=== PATIENT | male | born 1985 | race Caucasian/White ===

== ENCOUNTER 2019-10-08 18:04 | Observation (INO) | payer OTHER ==
[2019-10-08] MEDS ORDERED: SODIUM CHLORIDE 0.9% 1,000 ML IV STA (18:28)
--- NOTE | 2019-10-08 18:37 | ED ---
General Adult HPI - General Source: patient, RN notes reviewed, old records reviewed Mode of arrival: ambulatory Limitations: no limitations <Jl Mcgrath - Last Filed: 10/08/19 19:59> <Carlos Berrios - Last Filed: 10/08/19 20:23> - General Chief complaint: Urogenital Stated complaint: Urogenital Time Seen by Provider: 10/08/19 18:18 - History of Present Illness Initial comments: 34-year-old male patient presents to ED for evaluation approximate 4 days right flank pain, fevers chills, approximately 3 episodes of nausea and vomiting. Patient was seen yesterday at [facility] where imaging revealed a 5 mm right-sided distal ureteral stone, pyuria nitrate positive. Patient also had a leukocytosis of 20. At that time patient was administered 2 g of Rocephin recommended transfer to [facility]. Patient signed out AGAINST MEDICAL ADVICE from the facility today. Patient presents today for evaluation. Patient has not taken any antibiotics today was discharged with ciprofloxacin was not able to get filled. Patient continues to have pain in the right lower flank region. Does report some subjective fevers and chills. Patient also had incidental finding of undescended testicle. Denies any other complaints at this time. Systemic: Pt denies fatigue, fever/chills, rash. Pt denies weakness, night sweats, weight loss. Neuro: Pt denies headache, visual disturbances, syncope or pre-syncope. HEENT: Pt denies ocular discharge or irritation, otalgia, rhinorrhea, pharyn gitis or notable lymphadenopathy. Cardiopulmonary: Pt denies chest pain, SOB, heart palpitations, dyspnea on exertion. Abdominal/GI: Pt denies abdominal pain, n/v/d. : Pt denies dysuria, burning w/ urination, frequency/urgency. Denies new onset urinary or bowel incontinence. MSK: Pt denies myalgia, loss of strength or function in extremities. Neuro: Pt denies new onset weakness, paresthesias. (Jl Mcgrath) - Related Data Allergies Allergy/AdvReac Type Severity Reaction Status Date / Time No Known Allergies Allergy Verified 10/08/19 18:09 Review of Systems ROS Other: All systems not noted in ROS Statement are negative. <Jl Mcgrath - Last Filed: 10/08/19 19:59> ROS Other: All systems not noted in ROS Statement are negative. <Carlos Berrios - Last Filed: 10/08/19 20:23> ROS Statement: Those systems with pertinent positive or pertinent negative responses have been documented in the HPI. Past Medical History Past Medical History: No Reported History Past Surgical History: No Surgical Hx Reported Past Psychological History: No Psychological Hx Reported Smoking Status: Current every day smoker Past Alcohol Use History: Occasional Past Drug Use History: Marijuana <Jl Mcgrath - Last Filed: 10/08/19 19:59> General Exam Limitations: no limitations <Jl Mcgrath - Last Filed: 10/08/19 19:59> - General Exam Comments Initial Comments: Constitutional: NAD, AOX3, Pt has pleasant affect. HEENT: NC/AT, trachea midline, neck supple, no lymphadenopathy. Posterior pharynx non erythematous, without exudates. External ears appear normal, without discharge. Mucous membranes moist. Eyes PERRLA, EOM intact. There is no scleral icterus. No pallor noted. Cardiopulmonary: RRR, no murmurs, rubs or gallops, no JVD noted. Lungs CTAB in anterior and posterior guadalupe. No peripheral edema. Abdominal exam: Abdomen soft and non-distended. Abdomen non-tender to palpation in all 4 quadrants. Bowel sounds active in LLQ. No hepatosplenomegaly. No ecchymosis. Right CVA tenderness positive, left CVA tenderness negative. Neuro: CN II-XII grossly intact. No nuchal rigidity. No raccon eyes, no bajwa sign, no hemotympanum. No cervical spinal tenderness. MSK: No posterior calf tenderness bilaterally, homans sign negative bilaterally. Posterior tibialis and radial pulse +2 bilaterally. Sensation intact in upper and lower extremities. Full active ROM in upper and lower extremities, 5/5 stregnth. (Jl Mcgrath) Course <Carlos Berrios - Last Filed: 10/08/19 20:23> Vital Signs 10/08/19 18:09 Temperature 98.1 F Pulse Rate 94 Respiratory 18 Rate Blood Pressure 122/75 O2 Sat by Pulse 97 Oximetry - Reevaluation(s) Reevaluation #1: 10/08/19 20:22 (Carlos Berrios) Medical Decision Making - Lab Data Result diagrams: 10/08/19 18:36 10/08/19 18:36 <Jl Mcgrath - Last Filed: 10/08/19 19:59> - Lab Data Result diagrams: 10/08/19 18:36 10/08/19 18:36 <Carlos Berrios - Last Filed: 10/08/19 20:23> - Medical Decision Making 34-year-old male patient presents to ED for evaluation approximate 4 days right flank pain, fevers chills, approximately 3 episodes of nausea and vomiting. Patient was seen yesterday at [facility] where imaging revealed a 5 mm right-sided distal ureteral stone, pyuria nitrate positive. Patient also had a leukocytosis of 20. At that time patient was administered 2 g of Rocephin recommended transfer to [facility]. Patient signed out AGAINST MEDICAL ADVICE from the facility today. Patient presents today for evaluation. Patient has not taken any antibiotics today was discharged with ciprofloxacin was not able to get filled. Patient continues to have pain in the right lower flank region. Does report some subjective fevers and chills. Patient also had incidental finding of undescended testicle. Denies any other complaints at this time. Patient vital signs stable, afebrile. Physical exam displayed right CVA tenderness. Laboratory investigations revealed leukocytosis of 20, creatinine of 1.2. UA displayed >182 wbc. KUB displayed no acute process. CAT scan report from history displayed a 5 mm distal ureteral stone. Case discussed the patient seen by Dr. Berrios. Patient will be admitted to Dr. Frausto for septic stone. (Jl Mcgrath) Case discussed with Dr. Padgett, regarding kidney stone with obstruction and UTI. He is given IV antibiotics in the emergency department. Urologist recommends admission for stent placement. Patient will be kept nothing by mouth tonight. For possible stent placement in the morning. Patient has said that he may not stay, he is told that he will be leaving AGAINST MEDICAL ADVICE, he is informed of the risks of this including worsening infection, kidney failure, sepsis. Patient has been admitted at this time. (Carlos Berrios) - Lab Data Lab Results 10/08/19 10/08/19 10/08/19 Range/Units 18:36 18:36 18:36 WBC 20.1 H (3.8-10.6) k/uL RBC 4.09 L (4.30-5.90) m/uL Hgb 12.5 L (13.0-17.5) gm/dL Hct 36.7 L (39.0-53.0) % MCV 89.8 (80.0-100.0) fL MCH 30.6 (25.0-35.0) pg MCHC 34.0 (31.0-37.0) g/dL RDW 13.2 (11.5-15.5) % Plt Count 198 (150-450) k/uL Neutrophils % 86 % Lymphocytes % 4 % Monocytes % 7 % Eosinophils % 1 % Basophils % 0 % Neutrophils # 17.2 H (1.3-7.7) k/uL Lymphocytes # 0.7 L (1.0-4.8) k/uL Monocytes # 1.5 H (0-1.0) k/uL Eosinophils # 0.2 (0-0.7) k/uL Basophils # 0.0 (0-0.2) k/uL PT (9.0-12.0) sec INR (<1.2) APTT (22.0-30.0) sec Sodium 137 (137-145) mmol/L Potassium 4.2 (3.5-5.1) mmol/L Chloride 106 (98-107) mmol/L Carbon Dioxide 24 (22-30) mmol/L Anion Gap 7 mmol/L BUN 14 (9-20) mg/dL Creatinine 1.24 (0.66-1.25) mg/dL Est GFR (CKD-EPI)AfAm 87 (>60 ml/min/1.73 sqM) Est GFR (CKD-EPI)NonAf 75 (>60 ml/min/1.73 sqM) Glucose 128 H (74-99) mg/dL Plasma Lactic Acid Roni 0.9 (0.7-2.0) mmol/L Calcium 8.9 (8.4-10.2) mg/dL Total Bilirubin 1.1 (0.2-1.3) mg/dL AST 26 (17-59) U/L ALT 22 (4-49) U/L Alkaline Phosphatase 122 (38-126) U/L Total Protein 6.2 L (6.3-8.2) g/dL Albumin 3.3 L (3.5-5.0) g/dL Lipase 30 (23-300) U/L Urine Color Urine Appearance (Clear) Urine pH (5.0-8.0) Ur Specific [place] (1.001-1.035) Urine Protein (Negative) Urine Glucose (UA) (Negative) Urine Ketones (Negative) Urine Blood (Negative) Urine Nitrite (Negative) Urine Bilirubin (Negative) Urine Urobilinogen (<2.0) mg/dL Ur Leukocyte Esterase (Negative) Urine RBC (0-5) /hpf Urine WBC (0-5) /hpf Urine WBC Clumps (None) /hpf Ur Squamous Epith Cells (0-4) /hpf Urine Bacteria (None) /hpf Urine Mucus (None) /hpf 10/08/19 10/08/19 Range/Units 18:36 18:36 WBC (3.8-10.6) k/uL RBC (4.30-5.90) m/uL Hgb (13.0-17.5) gm/dL Hct (39.0-53.0) % MCV (80.0-100.0) fL MCH (25.0-35.0) pg MCHC (31.0-37.0) g/dL RDW (11.5-15.5) % Plt Count (150-450) k/uL Neutrophils % % Lymphocytes % % Monocytes % % Eosinophils % % Basophils % % Neutrophils # (1.3-7.7) k/uL Lymphocytes # (1.0-4.8) k/uL Monocytes # (0-1.0) k/uL Eosinophils # (0-0.7) k/uL Basophils # (0-0.2) k/uL PT 10.6 (9.0-12.0) sec INR 1.0 (<1.2) APTT 29.5 (22.0-30.0) sec Sodium (137-145) mmol/L Potassium (3.5-5.1) mmol/L Chloride (98-107) mmol/L Carbon Dioxide (22-30) mmol/L Anion Gap mmol/L BUN (9-20) mg/dL Creatinine (0.66-1.25) mg/dL Est GFR (CKD-EPI)AfAm (>60 ml/min/1.73 sqM) Est GFR (CKD-EPI)NonAf (>60 ml/min/1.73 sqM) Glucose (74-99) mg/dL Plasma Lactic Acid Roni (0.7-2.0) mmol/L Calcium (8.4-10.2) mg/dL Total Bilirubin (0.2-1.3) mg/dL AST (17-59) U/L ALT (4-49) U/L Alkaline Phosphatase (38-126) U/L Total Protein (6.3-8.2) g/dL Albumin (3.5-5.0) g/dL Lipase (23-300) U/L Urine Color Yellow Urine Appearance Cloudy (Clear) Urine pH 6.5 (5.0-8.0) Ur Specific [place] 1.010 (1.001-1.035) Urine Protein 1+ H (Negative) Urine Glucose (UA) Negative (Negative) Urine Ketones Negative (Negative) Urine Blood Small H (Negative) Urine Nitrite Negative (Negative) Urine Bilirubin Negative (Negative) Urine Urobilinogen 2.0 (<2.0) mg/dL Ur Leukocyte Esterase Large H (Negative) Urine RBC 7 H (0-5) /hpf Urine WBC >182 H (0-5) /hpf Urine WBC Clumps Many H (None) /hpf Ur Squamous Epith Cells 1 (0-4) /hpf Urine Bacteria Rare H (None) /hpf Urine Mucus Rare H (None) /hpf Disposition <Jl Mcgrath - Last Filed: 10/08/19 19:59> <Carlos Berrios - Last Filed: 10/08/19 20:23> Clinical Impression: Ureteral calculi, Pyelonephritis Disposition: ADMITTED IP TO THIS [facility] Condition: Serious Referrals: Kraig Case, PAC [Primary Care Provider] - 1-2 days
[2019-10-08 18:58] LABS: Basophils % (A) 0 %; Eosinophils # (A) 0.2 k/uL (0-0.7); Eosinophils % (A) 1 %; HCT 36.7 % (39.0-53.0); HGB 12.5 gm/dL (13.0-17.5); Lymphocytes # (A) 0.7 k/uL (1.0-4.8); Lymphocytes % (A) 4 %; MCH 30.6 pg (25.0-35.0); MCV 89.8 fL (80.0-100.0); Mean Platelet Volume 8.5; Monocytes # (A) 1.5 k/uL (0-1.0); Monocytes % (A) 7 %; Neutrophils # (A) 17.2 k/uL (1.3-7.7); Neutrophils % (A) 86 %; Platelet Count 198 k/uL (150-450); RBC 4.09 m/uL (4.30-5.90); RDW 13.2 % (11.5-15.5); WBC 20.1 k/uL (3.8-10.6)
[2019-10-08 19:04] LABS: Appearance,Urine Cloudy (Clear); Color,Urine Yellow; PH, Urine 6.5 (5.0-8.0); Protein,Urine 1+ (Negative)
[2019-10-08 19:05] LABS: Bacteria,Urine Rare /hpf; Bilirubin,Urine Negative (Negative); Blood,Urine Small (Negative); Glucose,Urine (UA) Negative (Negative); Ketones,Urine Negative (Negative); Leukocyte Esterase,Urine Large (Negative); Mucus,Urine Rare /hpf; Nitrite,Urine Negative (Negative); RBC,Urine 7 /hpf (0-5); Squamous Epithelial Cell,Urine 1 /hpf (0-4); WBC,Urine >182 /hpf (0-5)
--- NOTE | 2019-10-08 19:08 | XR ---
EXAMINATION TYPE: XR KUB DATE OF EXAM: 10/08/2019 COMPARISON: NONE HISTORY: Kidney stone TECHNIQUE: 2 views upright FINDINGS: There is no sign of intestinal obstruction or pneumoperitoneum. Fecal pattern is normal. Saida ng bases are clear. I see no pathologic calcifications over the kidneys. There is no evidence of a ma ss. IMPRESSION: Nonacute abdomen.
[2019-10-08 19:14] LABS: Albumin 3.3 g/dL (3.5-5.0); Calcium 8.9 mg/dL (8.4-10.2); Potassium 4.2 mmol/L (3.5-5.1); Total Bilirubin 1.1 mg/dL (0.2-1.3); Total Protein 6.2 g/dL (6.3-8.2)
[2019-10-08 19:17] LABS: Partial Thromboplastin Time 29.5 sec (22.0-30.0); Prothrombin Time 10.6 sec (9.0-12.0)
[2019-10-08] MEDS ORDERED: NALOXONE 0.4 MG/ML 1 ML VIAL IV PRN (20:00)
[2019-10-08] MEDS ORDERED: ACETAMINOPHEN TAB 325 MG TAB PO PRN (20:00)
[2019-10-08] MEDS ORDERED: TAMSULOSIN 0.4 MG CAP.ER.24H PO STA (20:02)
[2019-10-08] MEDS ORDERED: NICOTINE 21MG/24HR PATCH TRANSDERM STA (21:56)
[2019-10-08] MEDS: SODIUM CHLORIDE 0.9% 1,000 ML IV SCH (21:57)
[2019-10-08] MEDS: IBUPROFEN 400 MG TAB PO PRN (21:57)
[2019-10-08] MEDS: MORPHINE SULFATE 4 MG/ML SYRINGE IV PRN (21:58)
[2019-10-09] MEDS: MORPHINE SULFATE 4 MG/ML SYRINGE IV PRN ×4 (01:36→20:25)
[2019-10-09] MEDS: IBUPROFEN 400 MG TAB PO PRN ×2 (07:01→20:28)
[2019-10-09] MEDS: SODIUM CHLORIDE 0.9% 1,000 ML IV SCH ×3 (07:11→20:33)
[2019-10-09 07:36] LABS: Basophils % (A) 0 %; Eosinophils # (A) 0.3 k/uL (0-0.7); Eosinophils % (A) 2 %; HCT 34.9 % (39.0-53.0); HGB 11.7 gm/dL (13.0-17.5); Lymphocytes % (A) 6 %; MCH 30.8 pg (25.0-35.0); MCHC 33.6 g/dL (31.0-37.0); MCV 91.7 fL (80.0-100.0); Mean Platelet Volume 8.3; Monocytes # (A) 1.6 k/uL (0-1.0); Monocytes % (A) 10 %; Neutrophils # (A) 13.2 k/uL (1.3-7.7); Neutrophils % (A) 79 %; Platelet Count 207 k/uL (150-450); RBC 3.81 m/uL (4.30-5.90); RDW 13.3 % (11.5-15.5); WBC 16.7 k/uL (3.8-10.6)
[2019-10-09 08:21] LABS: Calcium 8.5 mg/dL (8.4-10.2); Total Bilirubin 0.8 mg/dL (0.2-1.3); Total Protein 5.9 g/dL (6.3-8.2)
[2019-10-09] MEDS: TAMSULOSIN 0.4 MG CAP.ER.24H PO SCH (08:45)
--- NOTE | 2019-10-09 09:34 | P.GSHP ---
History of Present Illness H&P Date: 10/09/19 Chief Complaint: Right renal colic The patient is a 34-year-old male with no prior history of urolithiasis or UTIs. He had a single episode of gross hematuria approximately one month ago. He was admitted with a 5 day history of right flank pain radiating to the right side of the abdomen, associated with fever, nausea, and vomiting. He was evaluated at [facility] on 10/07/2019. Urinalysis at that time was nitrate positive, and a CT scan showed evidence of right hydronephrosis secondary to a 5 mm right proximal ureteral calculus. He signed himself out of the hospital AMA, but presented to the ER at [facility] yesterday evening and was admitted. - Constitutional Constitutional: Reports chills, Reports fever - Gastrointestinal Gastrointestinal: Reports nausea, Reports vomiting - Genitourinary (Female) Genitourinary: Reports flank pain, Reports hematuria, Denies dysuria Past Medical History Past Medical History: No Reported History Additional Past Medical History / Comment(s): Back problems History of Any Multi-Drug Resistant Organisms: None Reported Past Surgical History: No Surgical Hx Reported Past Anesthesia/Blood Transfusion Reactions: No Reported Reaction Past Psychological History: No Psychological Hx Reported Smoking Status: Current every day smoker Past Alcohol Use History: Occasional Past Drug Use History: Marijuana Medications and Allergies Home Medications Medication Instructions Recorded Confirmed Type Hydrocodone/Acetaminophen [[place] 1 tab PO QID 10/08/19 10/08/19 History 10-325] Allergies Allergy/AdvReac Type Severity Reaction Status Date / Time No Known Allergies Allergy Verified 10/08/19 21:53 Surgical - Exam Vital Signs Temp Pulse Resp BP Pulse Ox 98.1 F 94 18 122/75 97 10/08/19 18:09 10/08/19 18:09 10/08/19 18:09 10/08/19 18:09 10/08/19 18:09 - General well developed, well nourished, no distress - Respiratory normal respiratory effort - Abdomen Abdomen: soft, non tender, no guarding, no rigid, no rebound - Genitourinary normal penis with no external lesions, other (The right testicle is palpably normal. The left testicle is atrophic.) - Psychiatric oriented to time, oriented to person, oriented to place, speech is normal, memory intact Results - Labs 12/29/19 06:48 10/09/19 06:48 Abnormal Lab Results - Last 24 Hours (Table) 10/08/19 10/08/19 10/08/19 Range/Units 18:36 18:36 18:36 WBC 20.1 H (3.8-10.6) k/uL RBC 4.09 L (4.30-5.90) m/uL Hgb 12.5 L (13.0-17.5) gm/dL Hct 36.7 L (39.0-53.0) % Neutrophils # 17.2 H (1.3-7.7) k/uL Lymphocytes # 0.7 L (1.0-4.8) k/uL Monocytes # 1.5 H (0-1.0) k/uL Creatinine (0.66-1.25) mg/dL Glucose 128 H (74-99) mg/dL Alkaline Phosphatase (38-126) U/L Total Protein 6.2 L (6.3-8.2) g/dL Albumin 3.3 L (3.5-5.0) g/dL Urine Protein 1+ H (Negative) Urine Blood Small H (Negative) Ur Leukocyte Esterase Large H (Negative) Urine RBC 7 H (0-5) /hpf Urine WBC >182 H (0-5) /hpf Urine WBC Clumps Many H (None) /hpf Urine Bacteria Rare H (None) /hpf Urine Mucus Rare H (None) /hpf 10/09/19 10/09/19 Range/Units 06:48 06:48 WBC 16.7 H (3.8-10.6) k/uL RBC 3.81 L (4.30-5.90) m/uL Hgb 11.7 L (13.0-17.5) gm/dL Hct 34.9 L (39.0-53.0) % Neutrophils # 13.2 H (1.3-7.7) k/uL Lymphocytes # (1.0-4.8) k/uL Monocytes # 1.6 H (0-1.0) k/uL Creatinine 1.39 H (0.66-1.25) mg/dL Glucose 107 H (74-99) mg/dL Alkaline Phosphatase 129 H (38-126) U/L Total Protein 5.9 L (6.3-8.2) g/dL Albumin 3.0 L (3.5-5.0) g/dL Urine Protein (Negative) Urine Blood (Negative) Ur Leukocyte Esterase (Negative) Urine RBC (0-5) /hpf Urine WBC (0-5) /hpf Urine WBC Clumps (None) /hpf Urine Bacteria (None) /hpf Urine Mucus (None) /hpf Microbiology - Last 24 Hours (Table) 10/08/19 18:36 Urine Culture - Preliminary Urine,Clean Catch Diabetes panel 10/08/19 10/09/19 Range/Units 18:36 06:48 Sodium 137 140 (137-145) mmol/L Potassium 4.2 4.0 (3.5-5.1) mmol/L Chloride 106 106 (98-107) mmol/L Carbon Dioxide 24 26 (22-30) mmol/L BUN 14 14 (9-20) mg/dL Creatinine 1.24 1.39 H (0.66-1.25) mg/dL Glucose 128 H 107 H (74-99) mg/dL Calcium 8.9 8.5 (8.4-10.2) mg/dL AST 26 23 (17-59) U/L ALT 22 21 (4-49) U/L Alkaline Phosphatase 122 129 H (38-126) U/L Total Protein 6.2 L 5.9 L (6.3-8.2) g/dL Albumin 3.3 L 3.0 L (3.5-5.0) g/dL Calcium panel 10/08/19 10/09/19 Range/Units 18:36 06:48 Calcium 8.9 8.5 (8.4-10.2) mg/dL Albumin 3.3 L 3.0 L (3.5-5.0) g/dL Pituitary panel 10/08/19 10/09/19 Range/Units 18:36 06:48 Sodium 137 140 (137-145) mmol/L Potassium 4.2 4.0 (3.5-5.1) mmol/L Chloride 106 106 (98-107) mmol/L Carbon Dioxide 24 26 (22-30) mmol/L BUN 14 14 (9-20) mg/dL Creatinine 1.24 1.39 H (0.66-1.25) mg/dL Glucose 128 H 107 H (74-99) mg/dL Calcium 8.9 8.5 (8.4-10.2) mg/dL Adrenal panel 10/08/19 10/09/19 Range/Units 18:36 06:48 Sodium 137 140 (137-145) mmol/L Potassium 4.2 4.0 (3.5-5.1) mmol/L Chloride 106 106 (98-107) mmol/L Carbon Dioxide 24 26 (22-30) mmol/L BUN 14 14 (9-20) mg/dL Creatinine 1.24 1.39 H (0.66-1.25) mg/dL Glucose 128 H 107 H (74-99) mg/dL Calcium 8.9 8.5 (8.4-10.2) mg/dL Total Bilirubin 1.1 0.8 (0.2-1.3) mg/dL AST 26 23 (17-59) U/L ALT 22 21 (4-49) U/L Alkaline Phosphatase 122 129 H (38-126) U/L Total Protein 6.2 L 5.9 L (6.3-8.2) g/dL Albumin 3.3 L 3.0 L (3.5-5.0) g/dL - Imaging CT scan - abdomen: report reviewed, image reviewed Assessment and Plan (1) Ureteral calculi Current Visit: Yes Status: Acute Code(s): N20.1 - CALCULUS OF URETER SNOMED Code(s): 59927859 (2) Pyelonephritis Current Visit: Yes Status: Acute Code(s): N12 - TUBULO-INTERSTITIAL NEPHRITIS, NOT SPCF ACUTE OR CHRONIC SNOMED Code(s): 22470650 Plan: The patient is currently being treated with IV hydration and Rocephin. A urine culture is pending. I have suggested he undergo cystoscopy with right ureteral stent insertion. The rationale for this has been discussed in detail, specifically this being to relieve ureteral obstruction to enhance resolution of his apparent infection. I explained to him the potential risks associated with ureteral stent placement include anesthesia, bleeding, infection, ureteral injury, and inability to successfully place the stent. If this turns out to be the case, he may require placement of a percutaneous nephrostomy tube. I explained to him that a ureteral stent cannot remain in place permanently, as that may result in renal loss. Rather, the stent will remain in place temporarily to allow resolution of infection. He would then undergo elective removal of the ureteral calculus, likely via ureteroscopy with laser lithotripsy in several weeks. The calculus is very poorly visualized on a KUB x-ray, and given that along with the patient's obesity it is felt that ESWL would be a less optimal approach. Time with Patient: Greater than 30
[2019-10-09] MEDS ORDERED: ONDANSETRON 4 MG/2 ML VIAL IVP PRN (13:11)
[2019-10-09] MEDS ORDERED: MIDAZOLAM 2 MG/2 ML VIAL IVP ONE (15:05)
[2019-10-09] MEDS ORDERED: PROPOFOL 10 MG/ML 20 ML VIAL IV ONE (15:21)
[2019-10-09] MEDS ORDERED: MIDAZOLAM 2 MG/2 ML VIAL ONE (15:21)
[2019-10-09] MEDS ORDERED: ROCURONIUM BROMIDE 10 MG/ML 10 ML VIAL IV ONE (15:21)
[2019-10-09] MEDS ORDERED: PHENYLEPHRINE-0.9% NACL SYG 1 MG/10 ML SYRINGE ONE (15:21)
[2019-10-09] MEDS ORDERED: LIDOCAINE 1% INJ 10MG/ML (20 ML MDV) ONE (15:21)
[2019-10-09] MEDS ORDERED: fentaNYL (PF) 50 MCG/ML 2 ML AMP ONE (15:21)
[2019-10-09] MEDS ORDERED: KETOROLAC 30 MG/ML 1 ML VIAL ONE (15:21)
[2019-10-09] MEDS ORDERED: SUCCINYLCHOLINE CHLORIDE VIAL 200 MG/10 ML VIAL IV ONE (15:21)
[2019-10-09] MEDS ORDERED: ALBUTEROL INHALER 60 PUFF/8 GM INHALER INHALATION ONE (15:21)
[2019-10-09] MEDS ORDERED: DEXAMETHASONE SOD PHOS (MDV) 100 MG/10 ML VIAL ONE (15:21)
[2019-10-09] MEDS ORDERED: IV FLUID CONTINUATION 200 ML IV ONE (15:21)
[2019-10-09] MEDS ORDERED: LACTATED RINGERS 1,000 ML IV ONE ×2 (15:53)
[2019-10-09] MEDS ORDERED: HYDROcodone/APAP 5-325MG 1 EACH TAB PO PRN ×2 (16:54)
--- NOTE | 2019-10-09 16:54 | P.OP ---
Date of Procedure: 10/09/19 Preoperative Diagnosis: Right ureteral calculus Postoperative Diagnosis: Right ureteral calculus, urethral stricture Procedure(s) Performed: Cystoscopy, urethral dilation, right ureteral stent insertion Anesthesia: ROLANDOA Surgeon: Lg Padgett Estimated Blood Loss (ml): 10 IV fluids (ml): 600 Pathology: none sent Condition: stable Disposition: PACU Indications for Procedure: The patient is a 34-year-old white male admitted with right renal colic due to a 5 mm right proximal ureteral calculus. Urinalysis is suggestive of infection, and laboratory studies show evidence of leukocytosis. He now comes for stent placement. Operative Findings: Fossa navicularis urethral stricture. Obstructing right ureteral calculus. Description of Procedure: The patient was taken to the operating room and placed in the dorsolithotomy position, with legs supported in Ben stirrups. The external genitalia was prepped and draped sterilely. The urethral meatus would not accommodate the 19- O[place] Stortz cystoscopic sheath. Therefore, [place] sounds were used to dilate the urethral meatus. However, at least in part because of the patient's body habitus, this was difficult and cystoscopy confirmed the presence of a false passage at 12:00. Once this was confirmed, the urethral lumen was dilated using sounds directed ventrally. Ultimately, filiforms and followers were used to assist with urethral dilation. Next, the 30 lens was used to introduce the 19-Omani Stortz cystoscopic sheath through the urethra and into the bladder under direct vision. The prostatic urethra showed evidence of mild lateral lobe enlargement. The bladder was examined in its entirety. Both ureteral orifices were of normal anatomic location and configuration. No tumors or foreign bodies were seen. A 0.035 inch Glidewire was passed through the cystoscope. The right ureteral orifice was cannulated, and the Glidewire was slowly advanced up to the calculus, where it met obstruction. The Glidewire could not be advanced beyond the calculus. A 6-Omani open-ended catheter was passed through the wire, up to the level just below the calculus, which was located at the junction between the proximal and mid ureter. The Glidewire was removed, and normal saline was injected through the open-ended catheter with the intent of dislodging the calculus. Next, and angle-tipped 0.035 inch Glidewire was passed through the open-ended ureteral catheter. With some manipulation, it was possible to advance the Glidewire beyond the calculus and up to the renal pelvis. A 24 cm, 4.8-Omani double-J ureteral stent was placed over the wire. Proper stent positioning was verified fluoroscopically and endoscopically. There was evidence of a "hydronephrotic emmanuel". The urine was noted to be blood tinged, but not purulent. The cystoscope was removed, and a 14-Omani coud tip catheter was passed into the bladder. The return was clear. The patient tolerated the procedure well was taken to the recovery room in stable condition.
[2019-10-10] MEDS: MORPHINE SULFATE 4 MG/ML SYRINGE IV PRN ×2 (02:36→07:39)
[2019-10-10] MEDS: TAMSULOSIN 0.4 MG CAP.ER.24H PO SCH (07:40)
[2019-10-10 07:48] VITALS: BP 127/72; PULSE 68; RESP 15; TEMP 97.8
--- NOTE | 2019-10-10 08:33 | P.DS ---
Providers Date of admission: 10/08/19 20:17 Expected date of discharge: 10/10/19 Attending physician: Martin Mustafa Primary care physician: GLORIA Wilson - Discharge Diagnosis(es) (1) Ureteral calculi Current Visit: Yes Status: Acute (2) Pyelonephritis Current Visit: Yes Status: Acute Hospital Course: Upon admission, the patient was treated with IV antibiotics and parenteral analgesics and antiemetics. On September 2019, he underwent right ureteral stent insertion. He was found to have a urethral stricture, and underwent difficult urethral dilation. He was feeling much better on the first postoperative day. The Porter catheter was draining clear yellow urine. His flank pain was much improved. Procedures: Cystoscopy, urethral dilation, right ureteral stent insertion on 10/09/2019 Patient Condition at Discharge: Good Plan - Discharge Summary Discharge Rx Participant: No New Discharge Prescriptions: New Ciprofloxacin HCl [Cipro] 500 mg PO Q12HR #10 tablet No Action Hydrocodone/Acetaminophen [[place] 10-325] 1 tab PO QID Discharge Medication List Hydrocodone/Acetaminophen [[place] 10-325] 1 tab PO QID 10/08/19 [History] Ciprofloxacin HCl [Cipro] 500 mg PO Q12HR #10 tablet 10/10/19 [Rx] Follow up Appointment(s)/Referral(s): Kraig Case PAC [Primary Care Provider] - 1-2 days Lg Padgett MD [STAFF PHYSICIAN] - 10/14/19 Activity/Diet/Wound Care/Special Instructions: Discharge home with Porter catheter. Please provide patient with an overnight drainage bag and a leg bag. Diet as tolerated. Activity as tolerated. Drink plenty of fluids. Discharge Disposition: HOME SELF-CARE
--- NOTE | 2019-10-10 11:24 | FL ---
EXAMINATION TYPE: FL guidance operating room DATE OF EXAM: 10/09/2019 HISTORY: Flouroscopy time 2 minutes and 11 seconds of fluoroscopy provided. IMPRESSION: 1. Fluoroscopy time.
== END 2019-10-10 12:54 | disposition home or self-care (01) ==
LOC: EC 18:04 → 4SSUR 20:17
PROVIDERS: ADMIT Urology; ATTEND Urology
DX: N20.1 Calculus of ureter (principal); N99.115 Postprocedural fossa navicularis urethral stricture; N12 Tubulo-interstitial nephritis, not specified as acute or chronic; F17.200 Nicotine dependence, unspecified, uncomplicated; K08.89 Other specified disorders of teeth and supporting structures; E66.9 Obesity, unspecified; Z68.41 Body mass index [BMI] 40.0-44.9, adult; Z79.891 Long term (current) use of opiate analgesic
CPT/HCPCS: 52281; 96376; 96375 ×2; 96361; 96365; 99285; 36415; 80053 ×2; 83605; 83690; 85025 ×2; 85610; 85730; 81001; 87040; 87086; 74018; G0378 ×3; C2625; C1769 ×2; C1758; S4990; J2250; J0330; J2270 ×3; J2405; J0696 ×2; J2001; J3010; J1885; J1100; J2370; J2704

== ENCOUNTER 2019-11-03 08:54 | Day surgery (SDC) | payer OTHER ==
--- NOTE | 2019-10-28 07:33 | P.GSHP ---
History of Present Illness H&P Date: 10/26/19 Chief Complaint: Right flank pain The patient is a 34-year-old male with no prior history of urolithiasis or UTIs. He had a single episode of gross hematuria; one month later he was admitted with a 5 day history of right flank pain radiating to the right side of the abdomen, associated with fever, nausea, and vomiting. He was evaluated at [facility] on 10/07/2019. Urinalysis at that time was nitrate positive, and a CT scan showed evidence of right hydronephrosis secondary to a 5 mm right proximal ureteral calculus. He signed himself out of the hospital AMA, but presented to the ER at [facility] and was admitted. He was treated with antibiotics, and underwent right ureteral stent insertion. 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 He required a Porter catheter following the procedure and developed an E. coli UTI, for which he is currently taking ciprofloxacin. - Constitutional Constitutional: Reports chills, Reports fever - Gastrointestinal Gastrointestinal: Reports nausea, Reports vomiting - Genitourinary (Female) Genitourinary: Reports flank pain, Reports hematuria Past Medical History Past Medical History: No Reported History Additional Past Medical History / Comment(s): Back problems History of Any Multi-Drug Resistant Organisms: None Reported Past Surgical History: No Surgical Hx Reported Past Anesthesia/Blood Transfusion Reactions: No Reported Reaction Past Psychological History: No Psychological Hx Reported Smoking Status: Current every day smoker Past Alcohol Use History: Occasional Past Drug Use History: Marijuana Medications and Allergies Home Medications Medication Instructions Recorded Confirmed Type Hydrocodone/Acetaminophen [[place] 1 tab PO QID 10/08/19 10/08/19 History 10-325] Ciprofloxacin HCl [Cipro] 500 mg PO Q12HR #10 tablet 10/10/19 Rx Allergies Allergy/AdvReac Type Severity Reaction Status Date / Time No Known Allergies Allergy Verified 10/08/19 21:53 Surgical - Exam - General well developed, well nourished, no distress - Respiratory normal respiratory effort - Abdomen Abdomen: soft, non tender, no guarding, no rigid, no rebound - Genitourinary normal penis with no external lesions, testicles non-tender, other (Atrophic left testicle) - Psychiatric oriented to time, oriented to person, oriented to place, speech is normal, memory intact Assessment and Plan Plan: Cystoscopy, urethral dilation, right ureteral stent removal, right ureteroscopy with Holmium laser lithotripsy. The procedure was reviewed in detail with the patient. He understands risks to include anesthesia, bleeding, infection, ureteral injury, and recurrent urethral stricture.
[2019-10-31 17:56] VITALS: BMI 50.9
[~2019-11-03 08:54] MED LIST: DEXAMETHASONE SOD PHOSPHATE 10 MG/ML 1 ML VIAL IV ONE; HYDROmorphone 0.5 MG/0.5 ML SYRINGE IVP PRN; LACTATED RINGERS 1,000 ML IV SCH; LEVOFLOXACIN 500MG-D5W PMX 500 MG in DEXTROSE/WATER 1 100ML.BAG IVPB ONE; LIDOCAINE 1% 20 ML VIAL (10MG/ML) FOR IV START INTRADERMA PRN; MIDAZOLAM 2 MG/2 ML VIAL IV PRN; ONDANSETRON 4 MG/2 ML VIAL IVP ONE; SCOPOLAMINE 1.5MG/72HR PATCH TRANSDERM ONE; ceFAZolin 3 GM in SODIUM CHLORIDE 0.9% 100 ML IVPB ONE
[2019-11-03 09:38] VITALS: TEMP 97.2
--- NOTE | 2019-11-03 09:55 | XR ---
EXAMINATION TYPE: XR KUB DATE OF EXAM: 11/03/2019 COMPARISON: 10/08/2019 HISTORY: Preop right ureteral calculus TECHNIQUE: One view abdominal series FINDINGS: The osseous structures are intact. The bowel gas pattern is nonspecific. Double-J ureteral stent is noted. There is a oval calcification adjacent to the right L2 transverse process along the course of the stent measuring a craniocaudal dimension of 9 mm and a transverse dimension of 4 mm. Bowel gas pattern nonspecific. Visualized osseous structures intact. IMPRESSION: 1. 4 x 9 mm proximal right ureteral calculus
[2019-11-03] MEDS ORDERED: fentaNYL (PF) 50 MCG/ML 2 ML AMP ONE (11:16)
[2019-11-03] MEDS ORDERED: KETAMINE 10 MG/ML 20 ML VIAL ONE (11:16)
[2019-11-03] MEDS ORDERED: GLYCOPYRROLATE 0.2 MG/ML 2 ML VIAL ONE (11:16)
[2019-11-03] MEDS ORDERED: NEOSTIGMINE 1 MG/ML 10 ML VIAL ONE (11:16)
[2019-11-03] MEDS ORDERED: SUCCINYLCHOLINE CHLORIDE VIAL 200 MG/10 ML VIAL IV ONE (11:16)
[2019-11-03] MEDS ORDERED: MIDAZOLAM 2 MG/2 ML VIAL ONE (11:16)
[2019-11-03] MEDS ORDERED: PROPOFOL 10 MG/ML 20 ML VIAL IV ONE (11:16)
[2019-11-03] MEDS ORDERED: LIDOCAINE 1% INJ 10MG/ML (20 ML MDV) ONE (11:16)
[2019-11-03] MEDS ORDERED: ROCURONIUM BROMIDE 10 MG/ML 10 ML VIAL IV ONE (11:16)
--- NOTE | 2019-11-03 12:43 | P.OP ---
Date of Procedure: 11/03/19 Preoperative Diagnosis: Right ureteral calculus Postoperative Diagnosis: Same Procedure(s) Performed: Cystoscopy, right ureteral stent removal, right ureteroscopy with Holmium laser lithotripsy Anesthesia: ROLANDOA Surgeon: Lg Padgett Estimated Blood Loss (ml): 0 IV fluids (ml): 200 Pathology: none sent Condition: stable Disposition: PACU Indications for Procedure: The patient is a 34-year-old male with no prior history of urolithiasis or UTIs. He had a single episode of gross hematuria; one month later he was admitted with a 5 day history of right flank pain radiating to the right side of the abdomen, associated with fever, nausea, and vomiting. He was evaluated at [facility] on 10/07/2019. Urinalysis at that time was nitrate positive, and a CT scan showed evidence of right hydronephrosis secondary to a 5 mm right proximal ureteral calculus. He signed himself out of the hospital AMA, but presented to the ER at [facility] and was admitted. He was treated with antibiotics, and underwent right ureteral stent insertion. 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 He required a Porter catheter following the procedure and developed an E. coli UTI, for which he is currently taking ciprofloxacin. Operative Findings: Right proximal ureteral calculus, fragmented completely. Description of Procedure: The patient was taken to the operating room and placed in the dorsolithotomy position, with legs supported in Ebn stirrups. The external genitalia was prepped and draped sterilely. The 30 lens was used to introduce the 19-Lebanese Stortz cystoscopic sheath through the urethra and into the bladder under direct vision. No resistance was met at the urethral meatus or the fossa navicularis. The prostatic urethra showed evidence of mild lateral lobe enlargement. The bladder was examined in its entirety. No tumors or foreign bodies were seen. The distal end of the right ureteral stent was grasped with grasping forceps and removed along with the cystoscope. A 0.038 inch Glidewire was passed through the stent and up to the right renal pelvis. The stent was removed, and an 11/13-Lebanese ureteral access catheter was passed over the wire, up to the mid ureter. The Olympus mini flexible ureteroscope was passed through the ureteral access catheter sheath and advanced up the ureter under direct vision, until the calculus was seen within the proximal ureter. The 200 micron Holmium laser probe was passed through the ureteroscope, and lithotripsy was performed using a dusting technique. Vanesa ntually, the calculus fragmented and the calculus fragments migrated into the kidney. The fragments were confined to 2 calyces, where additional lithotripsy was performed until there were no residual calculus fragments exceeding the size of the laser fiber tip. The ureteroscope was slowly withdrawn under direct vision. There was no evidence of ureteral trauma. The patient tolerated the procedure well and was taken to the recovery room in stable condition. [facility] Report: Procedure Acuity: Elective Stone Size and Location: 4 x 9 mm, right proximal ureter Ureteral Dilation: No Ureteral Access Sheath Used: Yes Stone Sent for Analysis: No All Stones/Fragments Were Removed with a Basket: No Complications: No Preoperative Antibiotics Given: Yes Stent Placed: No Discharge Medications: None
[2019-11-03 13:02] VITALS: RESP 16
[2019-11-03] MEDS ORDERED: HYDROcodone/APAP 10-325MG 1 EACH TAB PO ONE (13:30)
--- NOTE | 2019-11-03 13:45 | FL ---
EXAMINATION TYPE: FL guidance operating room DATE OF EXAM: 11/03/2019 HISTORY: Fluoroscopy time 32 seconds of fluoroscopy provided. IMPRESSION: 1. Fluoroscopy time.
[2019-11-03 13:57] VITALS: BP 164/84; PULSE 59
== END 2019-11-03 14:26 | disposition home or self-care (01) ==
LOC: OR 08:54
PROVIDERS: ATTEND Urology
DX: N13.2 Hydronephrosis with renal and ureteral calculous obstruction (principal); N35.919 Unspecified urethral stricture, male, unspecified site; N39.0 Urinary tract infection, site not specified; B96.20 Unspecified Escherichia coli [E. coli] as the cause of diseases classified elsewhere; E66.01 Morbid (severe) obesity due to excess calories; F17.210 Nicotine dependence, cigarettes, uncomplicated; Z87.442 Personal history of urinary calculi; Z79.891 Long term (current) use of opiate analgesic; Z68.43 Body mass index [BMI] 50.0-59.9, adult
CPT/HCPCS: 74018; 52353; C1769 ×2; J2250; J0330; J1100; J2710; J2405; J2001; J3010; J2704; J1170